=== PATIENT | female | born 1960 | race Two or more races ===

== ENCOUNTER → 2024-09-26 | Outpatient (CLI) | payer MEDICAID ==
[~2024-09-26] MED LIST: REGADENOSON 0.4 MG/5 ML SYRG IV ONE
[2024-09-26] MEDS: REGADENOSON 0.4 MG/5 ML SYRG IV ONE (10:34)
--- NOTE | 2024-09-26 14:44 | DVHSR ---
APPROVED REPORT Exam: Nuclear Stress Test BMI: 0 Stress Test Details HR Max Heart Rate (APMHR): 156.559820 bpm Target HR (85% APMHR): 132.029690 bpm BP ECG Stress ECG Conclusion Normal resting ECG. At peak stress level no dynamic EKG changes was noted to suggest ischemia. Normal resting images with near homogeneous uptake of radioactive tracer throughout the myocardium wi thout evidence of myocardial infarction. Normal stress images with near homogeneous uptake of radioactive tracer throughout the myocardium wit hout evidence of myocardial ischemia. Well-preserved left ventricular systolic function at 72%. Impression: Negative stress for ischemia, low risk study NM EXAM: Myocardial Perfusion REST/STRESS Imaging Protocol: Rest Tc-99m/Stress Tc-99m 1 day Resting Data Rest SPECT myocardial perfusion imaging was performed in supine position 60 minutes following the int ravenous injection of 12.9 mCi of Tc-99m Sestamibi. Time of rest injection: 0910 Time of rest imagin Administration Route: IV Administration Site: Right AC Pharmacologic Stress Pharmacologic stress test was performed by injecting Regadenoson 0.4 mg IV push followed by the intra venous injection of 33.7 mCi of Tc-99m Sestamibi. Time of stress injection: 1028 Time of stress imagin Administration Route: IV Administration Site: Right AC Gated Stress SPECT was performed 60 minutes after stress injection. The images were gated to evaluate regional wall motion and calculate left ventricular ejection fracti on. Stress only was performed in the Supine position. Nuclear Conclusion ECG Findings: negative for ischemia Clinical Findings: negative for ischemia Nuclear Findings: negative for ischemia Exercise Capacity: not assessed Left Ventricular Function: normal Risk Study: low Normal resting ECG. At peak stress level no dynamic EKG changes was noted to suggest ischemia. Normal resting images with near homogeneous uptake of radioactive tracer throughout the myocardium wi thout evidence of myocardial infarction. Normal stress images with near homogeneous uptake of radioactive tracer throughout the myocardium wit hout evidence of myocardial ischemia. Well-preserved left ventricular systolic function at 72%. Impression: Negative stress for ischemia, low risk study
== END | disposition home or self-care (01) ==
LOC: XYW 08:53
PROVIDERS: ATTEND Internal Medicine
DX: R07.9 Chest pain, unspecified (principal)
CPT/HCPCS: 78452; 93017; A9500; J2785